=== PATIENT | male | born 2000 | race Caucasian/White ===

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

== ENCOUNTER 2021-05-09 03:02 | Inpatient (IN) ==
[2021-05-09 03:36] LABS: Appearance Urine Clear (Clear); Bacteria Urine Automated Negative (Negative); Bilirubin Urine Negative (Negative); Blood Urine Negative (Negative); Color Urine Yellow; Glucose Urine UA Negative (Negative); Ketones Urine Negative (Negative); Leukocyte Esterase Urine Negative (Negative); Nitrite Urine Negative (Negative); Protein Urine 1+ (Negative); RBC Urine Automated 0-4 /hpf (0-4); Urobilinogen Urine Negative (Negative)
[2021-05-09 03:56] LABS: Amphetamines+Metham, Urine Neg (Neg); Barbiturates, Urine Neg (Neg); Benzodiazepine, Urine Neg (Neg); Cocaine, Urine Neg (Neg); MDMA (Ecstacy), Urine Neg (Neg); Methadone, Urine Neg (Neg); Opiate, Urine Neg (Neg); Phencyclidine, Urine Neg (Neg)
[2021-05-09 04:05] LABS: Basophils # (auto) 0.04 K/uL (0-0.2); Basophils % (auto) 0.4 %; Eosinophils # (auto) 0.11 K/uL (0-0.5); Eosinophils % (auto) 1.2 %; Hematocrit (blood only) 47.2 % (42-52); Hemoglobin 16.3 g/dL (14.0-18.0); Immature Granulocytes # (auto) 0.04 K/uL (0.00-0.02); Immature Granulocytes % (auto) 0.4 %; Lymphocytes # (auto) 1.91 K/uL (1.2-3.4); Lymphocytes % (auto) 20.4 %; Mean Corpuscular Hemoglobin 29.6 pg (25-34); Mean Corpuscular Hgb Conc 34.5 g/dL (32-36); Mean Corpuscular Volume 85.7 fL (80-100); Mean Platelet Volume 10.5 fL (7.4-10.4); Monocytes # (auto) 0.77 K/uL (0.11-0.59); Monocytes % (auto) 8.2 %; Neutrophils # (auto) 6.47 K/uL (1.4-6.5); Neutrophils % (auto) 69.4 %; Platelet Count 285 K/uL (130-400); RDW Standard Deviation 40.6 fL (36.4-46.3); Red Blood Count 5.51 M/uL (4.7-6.1); White Blood Count 9.34 K/uL (4.8-10.8)
[2021-05-09 04:26] LABS: Alanine Aminotransferase 62 (12-78); Albumin Level 4.7 gm/dl (3.4-5.0); Aspartate Aminotransferase 27 U/L (15-37); BUN Creatinine Ratio 9.5 (10-20); Blood Urea Nitrogen 7 mg/dl (7-18); Calcium 9.5 mg/dl (8.5-10.1); Carbon Dioxide 22 mmol/L (21-32); Chloride 109 mmol/L (98-107); Creatinine Clr Calc Pharmacy 193.4 ml/min; Est GFR (African American) > 150.0 ml/min; Est GFR (Non-African American) 129.7 ml/min; Glucose 97 mg/dl (70-99); Potassium 3.9 mmol/L (3.5-5.1); Sodium 141 mmol/L (136-145)
[2021-05-09 04:37] LABS: Albumin Globulin Ratio 1.3 (0.9-2); Alkaline Phosphatase 94 U/L (45-117); Bilirubin,Total 0.3 mg/dl (0.2-1); Globulin 3.5 gm/dl (2.5-4.0); Total Protein 8.2 gm/dl (6.4-8.2)
[2021-05-09 04:44] LABS: Acetaminophen < 2 ug/ml (10-30)
[2021-05-09 04:45] LABS: Salicylate < 1.7 mg/dl (2.8-20)
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
[2021-05-09] MEDS ORDERED: BISMUTH SUBSALICYLATE LIQD 236 ML PO PRN (08:41)
[2021-05-09] MEDS ORDERED: ACETAMINOPHEN 325 MG TAB PO PRN (08:41)
[2021-05-09] MEDS ORDERED: ALUMINUM/MAGNESIUM SUSP 30 ML UDC PO PRN (08:41)
[2021-05-09] MEDS ORDERED: SODIUM CHLORIDE 0.65% NA SOLN 45 ML (OCEAN) PRN (08:41)
[2021-05-09] MEDS ORDERED: MAGNESIUM HYDROXIDE SUSP 30 ML UDC PO PRN (08:41)
[2021-05-09] MEDS ORDERED: hydrOXYzine HCl 25 MG TAB PO PRN (08:41)
[2021-05-09] MEDS ORDERED: Flu Vaccine (Flucelvax) 0.5mL SYR **Egg-Free IM ONE (11:00)
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
--- NOTE | 2021-05-09 14:44 | Emergency Department Note ---
ED Visit Note The patient was signed out to me awaiting disposition. He was accepted at [facility] . : Alcohol intoxication Qualifiers: Complication of substance-induced condition: uncomplicated Qualified Code(s): F10.920 - Alcohol use, unspecified with intoxication, uncomplicated
[2021-05-09] MEDS ORDERED: traZODone HCL 50 MG TAB PO SCH (21:00)
[2021-05-09] MEDS ORDERED: ESCITALOPRAM OXALATE 10 MG TAB PO SCH (21:00)
[2021-05-09] MEDS: traZODone HCL 100 MG TAB PO SCH (21:08)
[2021-05-10] MEDS: MONTELUKAST SODIUM 10 MG TABLET PO SCH (08:57)
[2021-05-10] MEDS: ESCITALOPRAM OXALATE 10 MG TAB PO SCH (08:57)
[2021-05-10] MEDS: buPROPion XL 300 MG TABCR PO SCH (08:57)
[2021-05-10] MEDS ORDERED: buPROPion XL 150 MG TABCR PO SCH (09:00)
--- NOTE | 2021-05-10 10:35 | Electrocardiogram Report ---
Test Reason : Blood Pressure : / mmHG Vent. Rate : 061 BPM Atrial Rate : 061 BPM P-R Int : 138 ms QRS Dur : 098 ms QT Int : 404 ms P-R-T Axes : 051 000 025 degrees QTc Int : 406 ms Normal sinus rhythm Normal ECG No previous ECGs available Confirmed by Frank Hale ([id number]) on 05/10/2021 10:35:30 AM Referred By: REFERRED SELF Confirmed By:Frank Hale
--- NOTE | 2021-05-10 14:40 | Psychiatric Progress Note ---
Date of Service May 10, 2021 Impression / Recommendations Impression The patient is a 21 year old with a history of depression, anxiety and self-harm via cutting who was admitted for worsening depression, SI with plans and significant self-harming in the context of alcohol intoxication. Diagnostically consistent with MDD and MOHSEN. Reviewed substance use and did motivational interviewing regarding alcohol use and disinhibiting effect it had and role it played it leading to significant self-harm. Also reviewed that derealization/depersonalization often occurs with marijuana use and would be a reason to reduce and ideally abstain from marijuana which he is willing to consider. The patient is deemed unstable and requires psychiatric hospitalization for diagnostic clarification, safety and stabilization, medication management and development of further coping skills. 05/10/21: Tolerating medication changes without side effects, remains depressed and somewhat isolative to his room. No urges for self-harm. EKG reviewed and normal sinus rhythm and normal QTc. (1) MOHSEN (generalized anxiety disorder): (2) MDD (major depressive disorder), recurrent episode, moderate: (3) Intentional self-harm: 05/10/21: continue with current medications. encouraged behavioral activation and continued group participation for development of more coping skills. 05/09/21: The patient was admitted to the [facility] ([facility] inpatient mental health unit) on q15 min checks (behavioral with suicide precautions) for safety. The patient will participate in group, recreational, and milieu therapies and will be offered additional individual and family sessions as clinically appropriate. -Get EKG given family history of father with heart attack at age 39 to rule out arrhythmia and assess QTc before increasing Wellbutrin dose -Declined NRT at this time but can have patch or gum if desired in future -Switch lexapro 10 mg from qhs to qAM -Increase trazodone from 50mg qhs to 100mg qhs -Increased Wellbutrin XL from 150mg qd to 300mg qd starting tomorrow (pending reassuring EKG) Inventory Assets Strengths: motivated to continue with therapy, good supports Needs: medication adjustments, increased daily structure with job or school Risk Factors Assessment Male: Yes : Yes Do You Have Access To A Gun?: No Health Problems: No Mental Health Diagnoses: Yes Substance Use Disorders: No Previous Attempt: No Family History of Suicide: No Previous Psychiatric Hospitalization: No Hopelessness: Yes Smoker: Yes Protective Factors Assessment Employed: No Stable Relationships: Yes Supportive Family: Yes Good Rapport with Provider: Yes Interval History Identifying Information LATANYA YEH is a 21-year-old man who currently lives in [place] with his father and step-mother, has a history of depression, anxiety and self-harm via cutting and no prior psychiatric hospitalizations, and was admitted on 05/09/21 07:55 on a 201 voluntary commitment for worsening depression, self-harm via cutting and SI with plans. Chief Complaint "I'm alright". Review of Systems Sleep Information Total Hours of Sleep: 9 Sleep Comments: pt given trazodone per rn. pt on q-15 minute checks. pt appeared to sleep 2 hrs during evening shift. Meal Information Percent Meal Consumed - Breakfast: 100 Percent Meal Consumed - Lunch: 100 Percent Meal Consumed - Dinner: 85 Nutrition Comment: Pt stated that he was not hungry Subjective Subjective Patient was seen & assessed and interval progress reviewed with treatment team nursing. Found the higher dose of trazodone helped a bit with falling asleep and staying asleep. No medication side effects. Attending groups. Continues to have depressed mood. Didn't notice any benefit from higher dose of Wellbutrin but also no increase in anxiety. Physical Exam Psychiatric Orientation: alert and oriented x 3 Apperance: appropriately dressed and appropriately groomed Eye Contact: good eye contact Motor Behavior: steady gait and station and no abnormal motor movements Speech: normal rate/rhythm/volume of speech Affect: + depressed affect Mood: + depressed mood and + anxious mood Thought Process: goal directed thought process Thought Content: reality based without delusions Suicidal Thoughts: denies suicidal thoughts Homicidal Thoughts: denies homicidal thoughts Hallucinations: no auditory hallucinations and no visual hallucinations Cognition: recent memory grossly intact, remote memory grossly intact, attention grossly intact and language grossly intact Estimated Intelligence: consistent with education level Insight: + fair insight Judgement: + fair judgement Vital Signs (Past 24 Hours) Last Vital Signs Temp 36.4 C L 05/10/21 06:43 Pulse 66 05/10/21 06:43 Resp 16 05/10/21 06:43 BP 114/86 05/10/21 06:43 Pulse Ox 97 05/09/21 09:10 Results & Data ([facility]) Current Inpatient Medications Current Inpatient Medications: Current Inpatient Medications Acetaminophen (Acetaminophen 325 Mg Tab) 650 mg PO Q4H PRN PRN Reason: Headache or Minor Fever Stop: 06/08/21 08:40 Al Hydrox/Mg Hydrox/Simethicone (Aluminum/Magnesium Susp 30 Ml Udc) 30 ml PO Q4H PRN PRN Reason: GI Upset Stop: 06/08/21 08:40 Bismuth Subsalicylate (Bismuth Subsalicylate Liqd 236 Ml) 15 ml PO PRN PRN PRN Reason: Loose Stool Stop: 06/08/21 08:40 Bupropion HCl (Bupropion Xl 300 Mg Tabcr) 300 mg PO DAILY GARTH Stop: 06/09/21 08:59 Last Admin: 05/10/21 08:57 Dose: 300 mg Documented by: Escitalopram Oxalate (Escitalopram Oxalate 10 Mg Tab) 10 mg PO QAM GARTH Stop: 06/09/21 08:59 Last Admin: 05/10/21 08:57 Dose: 10 mg Documented by: Hydroxyzine HCl (Hydroxyzine Hcl 25 Mg Tab) 50 mg PO HSZ PRN PRN Reason: Insomnia Stop: 06/08/21 08:40 Hydroxyzine HCl (Hydroxyzine Hcl 25 Mg Tab) 25 mg PO Q4H PRN PRN Reason: Anxiety Stop: 06/08/21 08:40 Magnesium Hydroxide (Magnesium Hydroxide Susp 30 Ml Udc) 30 ml PO DAILY PRN PRN Reason: Constipation Stop: 06/08/21 08:40 Montelukast Sodium (Montelukast Sodium 10 Mg Tablet) 10 mg PO DAILY GARTH Stop: 06/09/21 08:59 Last Admin: 05/10/21 08:57 Dose: 10 mg Documented by: Sodium Chloride (Sodium Chloride 0.65% Na Soln 45 Ml ([place])) 1 - 2 sprays NA PRN PRN PRN Reason: Nasal Dryness/Congestion Stop: 06/08/21 08:40 Trazodone HCl (Trazodone Hcl 100 Mg Tab) 100 mg PO PM GARTH Stop: 06/08/21 20:59 Last Admin: 05/09/21 21:08 Dose: 100 mg Documented by: Mental Health & Subst Abuse Tx Therapist Name of Therapist: Jayesh Baker Therapist's Therapy Appointment Comment: [address], [place], [place] Ground Support Equipment Fitter Name of Ground Support Equipment Fitter: None Post Discharge Appointments Primary Care Physician Name Of Family Doctor: [place] [facility] Primary Care Provider Appointment Comment: [id number], [place], [place] Contact Information Discharge Discharge Address: [facility] [address], [place] [address]
[2021-05-10] MEDS: traZODone HCL 100 MG TAB PO SCH (21:13)
[2021-05-11] MEDS: hydrOXYzine HCl 25 MG TAB PO PRN ×2 (01:34→02:42)
[2021-05-11] MEDS: ESCITALOPRAM OXALATE 10 MG TAB PO SCH (07:40)
[2021-05-11] MEDS: MONTELUKAST SODIUM 10 MG TABLET PO SCH (07:40)
[2021-05-11] MEDS: buPROPion XL 300 MG TABCR PO SCH (07:40)
--- NOTE | 2021-05-11 13:00 | Psychiatric Progress Note ---
Date of Service May 11, 2021 Impression / Recommendations Impression The patient is a 21 year old with a history of depression, anxiety and self-harm via cutting who was admitted for worsening depression, SI with plans and significant self-harming in the context of alcohol intoxication. Diagnostically consistent with MDD and MOHSEN. Reviewed substance use and did motivational interviewing regarding alcohol use and disinhibiting effect it had and role it played it leading to significant self-harm. Also reviewed that derealization/depersonalization often occurs with marijuana use and would be a reason to reduce and ideally abstain from marijuana which he is willing to consider. The patient is deemed unstable and requires psychiatric hospitalization for diagnostic clarification, safety and stabilization, medication management and development of further coping skills. 05/11/21: Tolerating medication changes without side effects, remains depressed though brightening a bit and no urges for self-harm nor SI today. Sleep remains significant challenge, discussed stopping trazodone and switching to mirtazapine which he consents to. Reviewed side effects including but not limited to SI, sedation, increased appetite. (1) MOHSEN (generalized anxiety disorder): (2) MDD (major depressive disorder), recurrent episode, moderate: (3) Intentional self-harm: 05/11/21: stop trazodone and start mirtazapine 15mg qhs for insomnia. Cont inue lexapro and Wellbutrin. Family meeting today and working on safety plan. 05/10/21: continue with current medications. encouraged behavioral activation and continued group participation for development of more coping skills. 05/09/21: The patient was admitted to the [facility] ([facility]) on q15 min checks (behavioral with suicide precautions) for safety. The patient will participate in group, recreational, and milieu therapies and will be offered additional individual and family sessions as clinically appropriate. -Get EKG given family history of father with heart attack at age 39 to rule out arrhythmia and assess QTc before increasing Wellbutrin dose -Declined NRT at this time but can have patch or gum if desired in future -Switch lexapro 10 mg from qhs to qAM -Increase trazodone from 50mg qhs to 100mg qhs -Increased Wellbutrin XL from 150mg qd to 300mg qd starting tomorrow (pending reassuring EKG) Inventory Assets Strengths: motivated to continue with therapy, good supports Needs: medication adjustments, increased daily structure with job or school Risk Factors Assessment Male: Yes : Yes Do You Have Access To A Gun?: No Health Problems: No Mental Health Diagnoses: Yes Substance Use Disorders: No Previous Attempt: No Family History of Suicide: No Previous Psychiatric Hospitalization: No Hopelessness: Yes Smoker: Yes Protective Factors Assessment Employed: No Stable Relationships: Yes Supportive Family: Yes Good Rapport with Provider: Yes Interval History Identifying Information LATANYA YEH is a 21-year-old man who currently lives in [place] with his father and step-mother, has a history of depression, anxiety and self-harm via cutting and no prior psychiatric hospitalizations, and was admitted on 05/09/21 07:55 on a 201 voluntary commitment for worsening depression, self-harm via cutting and SI with plans. Chief Complaint "I'm glad it's nadira today". Review of Systems Sleep Information Total Hours of Sleep: 4.5 Sleep Comments: pt given trazodone per rn. pt on q-15 minute checks. pt appeared to sleep 2 hrs during evening shift. Meal Information Percent Meal Consumed - Breakfast: 100 Percent Meal Consumed - Lunch: 100 Percent Meal Consumed - Dinner: 100 Nutrition Comment: Pt stated that he was not hungry Subjective Subjective Patient was seen & assessed and interval progress reviewed with treatment team nursing and social work. He reports his mood is "alright" today though he slept poorly with significant difficulty falling asleep even with trazodone and two doses of prn hydroxyzine. He is finding the Wellbutrin helpful for his mood and energy level without any side effects. Had some self-harming thoughts yesterday but none today and no SI so far today. Physical Exam Psychiatric Orientation: alert and oriented x 3 Apperance: appropriately dressed and appropriately groomed Eye Contact: good eye contact Motor Behavior: steady gait and station and no abnormal motor movements Speech: normal rate/rhythm/volume of speech Affect: + depressed affect Mood: + depressed mood and + anxious mood Thought Process: goal directed thought process Thought Content: reality based without delusions Suicidal Thoughts: denies suicidal thoughts Homicidal Thoughts: denies homicidal thoughts Hallucinations: no auditory hallucinations and no visual hallucinations Cognition: recent memory grossly intact, remote memory grossly intact, attention grossly intact and language grossly intact Estimated Intelligence: consistent with education level Insight: + fair insight Judgement: + fair judgement Vital Signs (Past 24 Hours) Last Vital Signs Temp 36.4 C L 05/11/21 06:00 Pulse 52 L 05/11/21 07:08 Resp 14 05/11/21 06:00 BP 116/78 05/11/21 07:08 Pulse Ox 97 05/09/21 09:10 Results & Data ([facility]) Current Inpatient Medications Current Inpatient Medications: Current Inpatient Medications Acetaminophen (Acetaminophen 325 Mg Tab) 650 mg PO Q4H PRN PRN Reason: Headache or Minor Fever Stop: 06/08/21 08:40 Al Hydrox/Mg Hydrox/Simethicone (Aluminum/Magnesium Susp 30 Ml Udc) 30 ml PO Q4H PRN PRN Reason: GI Upset Stop: 06/08/21 08:40 Bismuth Subsalicylate (Bismuth Subsalicylate Liqd 236 Ml) 15 ml PO PRN PRN PRN Reason: Loose Stool Stop: 06/08/21 08:40 Bupropion HCl (Bupropion Xl 300 Mg Tabcr) 300 mg PO DAILY GARTH Stop: 06/09/21 08:59 Last Admin: 05/11/21 07:40 Dose: 300 mg Documented by: Escitalopram Oxalate (Escitalopram Oxalate 10 Mg Tab) 10 mg PO QAM GARTH Stop: 06/09/21 08:59 Last Admin: 05/11/21 07:40 Dose: 10 mg Documented by: Hydroxyzine HCl (Hydroxyzine Hcl 25 Mg Tab) 50 mg PO HSZ PRN PRN Reason: Insomnia Stop: 06/08/21 08:40 Last Admin: 05/11/21 02:42 Dose: 50 mg Documented by: Hydroxyzine HCl (Hydroxyzine Hcl 25 Mg Tab) 25 mg PO Q4H PRN PRN Reason: Anxiety Stop: 06/08/21 08:40 Magnesium Hydroxide (Magnesium Hydroxide Susp 30 Ml Udc) 30 ml PO DAILY PRN PRN Reason: Constipation Stop: 06/08/21 08:40 Montelukast Sodium (Montelukast Sodium 10 Mg Tablet) 10 mg PO DAILY GARTH Stop: 06/09/21 08:59 Last Admin: 05/11/21 07:40 Dose: 10 mg Documented by: Sodium Chloride (Sodium Chloride 0.65% Na Soln 45 Ml ([place])) 1 - 2 sprays NA PRN PRN PRN Reason: Nasal Dryness/Congestion Stop: 06/08/21 08:40 Trazodone HCl (Trazodone Hcl 100 Mg Tab) 100 mg PO PM GARTH Stop: 06/08/21 20:59 Last Admin: 05/10/21 21:13 Dose: 100 mg Documented by: Mental Health & Subst Abuse Tx Therapist Name of Therapist: Jayesh Colbert- Gladys Baker Therapist's Therapy Appointment Comment: [address], [place], [place] Vocational Nurse Name of Vocational Nurse: None Post Discharge Appointments Primary Care Physician Name Of Family Doctor: [place] [facility] Primary Care Provider Appointment Comment: [phone], [place], [place] Contact Information Discharge Discharge Address: [address], [place] [address]
[2021-05-11] MEDS ORDERED: MIRTAZAPINE TAB 15 MG TAB PO SCH (22:00)
[2021-05-12 09:07] LABS: Marijuana Quant, GCMS Urine 275 ng/mL (<5)
[2021-05-12] MEDS: ESCITALOPRAM OXALATE 10 MG TAB PO SCH (09:21)
[2021-05-12] MEDS: buPROPion XL 300 MG TABCR PO SCH (09:21)
[2021-05-12] MEDS: MONTELUKAST SODIUM 10 MG TABLET PO SCH (09:21)
--- NOTE | 2021-05-12 12:22 | Psychiatric Progress Note ---
Date of Service May 12, 2021 Impression / Recommendations Impression The patient is a 21 year old with a history of depression, anxiety and self-harm via cutting who was admitted for worsening depression, SI with plans and significant self-harming in the context of alcohol intoxication. Diagnostically consistent with MDD and MOHSEN. Reviewed substance use and did motivational interviewing regarding alcohol use and disinhibiting effect it had and role it played it leading to significant self-harm. Also reviewed that derealization/depersonalization often occurs with marijuana use and would be a reason to reduce and ideally abstain from marijuana which he is willing to consider. The patient is deemed unstable and requires psychiatric hospitalization for diagnostic clarification, safety and stabilization, medication management and development of further coping skills. 05/12/21: Slept well with mirtazapine but having side effects this morning from it. Discussed reducing dose which he is agreeable to trying. Mood is improving. Completed safety plan and had family meeting. (1) MOHSEN (generalized anxiety disorder): (2) MDD (major depressive disorder), recurrent episode, moderate: (3) Intentional self-harm: 05/12/21: reduce mirtazapine to 7.5 mg qhs due to excessive grogginess this morning. Continue Lexapro and Wellbutrin XL. Safety plan completed. 05/11/21: stop trazodone and start mirtazapine 15mg qhs for insomnia. Continue lexapro and Wellbutrin. Family meeting today and working on safety plan. 05/10/21: continue with current medications. encouraged behavioral activation and continued group participation for development of more coping skills. 05/09/21: The patient was admitted to the [facility] ([facility]) on q15 min checks (behavioral with suicide precautions) for safety. The patient will participate in group, recreational, and milieu therapies and will be offered additional individual and family sessions as clinically appropriate. -Get EKG given family history of father with heart attack at age 39 to rule out arrhythmia and assess QTc before increasing Wellbutrin dose -Declined NRT at this time but can have patch or gum if desired in future -Switch lexapro 10 mg from qhs to qAM -Increase trazodone from 50mg qhs to 100mg qhs -Increased Wellbutrin XL from 150mg qd to 300mg qd starting tomorrow (pending reassuring EKG) Inventory Assets Strengths: motivated to continue with therapy, good supports Needs: medication adjustments, increased daily structure with job or school Risk Factors Assessment Male: Yes : Yes Do You Have Access To A Gun?: No Health Problems: No Mental Health Diagnoses: Yes Substance Use Disorders: No Previous Attempt: No Family History of Suicide: No Previous Psychiatric Hospitalization: No Hopelessness: Yes Smoker: Yes Protective Factors Assessment Employed: No Stable Relationships: Yes Supportive Family: Yes Good Rapport with Provider: Yes Interval History Identifying Information LATANYA YEH is a 21-year-old man who currently lives in [place] with his father and step-mother, has a history of depression, anxiety and self-harm via cutting and no prior psychiatric hospitalizations, and was admitted on 05/09/21 07:55 on a 201 voluntary commitment for worsening depression, self-harm via cutting and SI with plans. Chief Complaint "I'm ok". Review of Systems Sleep Information Total Hours of Sleep: 7.25 Sleep Comments: pt on q-15 minute checks. pt appeared to sleep 2 hrs during evening shift. Meal Information Percent Meal Consumed - Breakfast: 90 Percent Meal Consumed - Lunch: 100 Percent Meal Consumed - Dinner: 100 Nutrition Comment: Subjective Subjective Patient was seen & assessed and interval progress reviewed with treatment team nursing and social work. Janes slept well last night and reports the good news is that the mirtazapine worked really well but that the bad news is that he feels groggy this morning with a "tingling sensation" and brain fog. He had a good family meeting yesterday. Denies any other medication side effects. He's agreea ble to reducing the dose of the mirtazapine to see if this helps reduce the morning sedation and fogginess side effects. He was able to focus on and read his book yesterday which his family brought him for branden. Physical Exam Psychiatric Orientation: alert and oriented x 3 Apperance: appropriately dressed and appropriately groomed Eye Contact: good eye contact Motor Behavior: steady gait and station and no abnormal motor movements Speech: normal rate/rhythm/volume of speech Affect: euthymic affect Mood: + anxious mood Thought Process: goal directed thought process Thought Content: reality based without delusions Suicidal Thoughts: denies suicidal thoughts Homicidal Thoughts: denies homicidal thoughts Hallucinations: no auditory hallucinations and no visual hallucinations Cognition: recent memory grossly intact, remote memory grossly intact, attention grossly intact and language grossly intact Estimated Intelligence: consistent with education level Insight: + fair insight Judgement: + fair judgement Vital Signs (Past 24 Hours) Last Vital Signs Temp 36.4 C L 05/12/21 06:00 Pulse 67 05/12/21 06:41 Resp 14 05/12/21 06:00 BP 118/81 05/12/21 06:41 Pulse Ox 97 05/09/21 09:10 Results & Data ([facility]) Laboratory Results Laboratory Results - last 24 hr 05/09/21 03:27 U Marijuana THC Carboxy 275 H Drug Screen Comment SEE NOTE Current Inpatient Medications Current Inpatient Medications: Current Inpatient Medications Acetaminophen (Acetaminophen 325 Mg Tab) 650 mg PO Q4H PRN PRN Reason: Headache or Minor Fever Stop: 06/08/21 08:40 Al Hydrox/Mg Hydrox/Simethicone (Aluminum/Magnesium Susp 30 Ml Udc) 30 ml PO Q4H PRN PRN Reason: GI Upset Stop: 06/08/21 08:40 Bismuth Subsalicylate (Bismuth Subsalicylate Liqd 236 Ml) 15 ml PO PRN PRN PRN Reason: Loose Stool Stop: 06/08/21 08:40 Bupropion HCl (Bupropion Xl 300 Mg Tabcr) 300 mg PO DAILY GARTH Stop: 06/09/21 08:59 Last Admin: 05/12/21 09:21 Dose: 300 mg Documented by: Escitalopram Oxalate (Escitalopram Oxalate 10 Mg Tab) 10 mg PO QAM GARTH Stop: 06/09/21 08:59 Last Admin: 05/12/21 09:21 Dose: 10 mg Documented by: Hydroxyzine HCl (Hydroxyzine Hcl 25 Mg Tab) 50 mg PO HSZ PRN PRN Reason: Insomnia Stop: 06/08/21 08:40 Last Admin: 05/11/21 02:42 Dose: 50 mg Documented by: Hydroxyzine HCl (Hydroxyzine Hcl 25 Mg Tab) 25 mg PO Q4H PRN PRN Reason: Anxiety Stop: 06/08/21 08:40 Magnesium Hydroxide (Magnesium Hydroxide Susp 30 Ml Udc) 30 ml PO DAILY PRN PRN Reason: Constipation Stop: 06/08/21 08:40 Mirtazapine (Mirtazapine Tab 15 Mg Tab) 7.5 mg PO HS GARTH Stop: 06/11/21 21:59 Montelukast Sodium (Montelukast Sodium 10 Mg Tablet) 10 mg PO DAILY GARTH Stop: 06/09/21 08:59 Last Admin: 05/12/21 09:21 Dose: 10 mg Documented by: Sodium Chloride (Sodium Chloride 0.65% Na Soln 45 Ml ([place])) 1 - 2 sprays NA PRN PRN PRN Reason: Nasal Dryness/Congestion Stop: 06/08/21 08:40 Mental Health & Subst Abuse Tx Psychiatrist Name of Psychiatrist: Iram Guevara Psychiatrist's Date of Appointment with Psychiatrist: 05/28/21 Time of Appointment with Psychiatrist: 9:45 AM Psychiatric Appointment Comment: [address], [place] [address] Therapist Name of Therapist: Jayesh Baker Therapist's Date of Therapist Appointment: 05/13/21 Time of Therapist Appointment: 4:00pm (telehealth) Therapy Appointment Comment: [address], [place], [place] Commercial Truck Driver Name of Commercial Truck Driver: None Post Discharge Appointments Primary Care Physician Name Of Family Doctor: [place] [facility] Date of Appointment with PCP: 05/14/21 Time of Appointment with PCP: 10:30 AM Provider Appointment Comment: [address], [place], [place] Contact Information Discharge Discharge Address: [facility] [address] , [place], [place] [address]
[2021-05-12] MEDS ORDERED: MIRTAZAPINE TAB 15 MG TAB PO SCH (22:00)
[2021-05-13] MEDS: MONTELUKAST SODIUM 10 MG TABLET PO SCH (07:35)
[2021-05-13] MEDS: buPROPion XL 300 MG TABCR PO SCH (07:36)
[2021-05-13] MEDS: ESCITALOPRAM OXALATE 10 MG TAB PO SCH (07:36)
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
== END 2021-05-13 10:28 | disposition home or self-care (01) | DRG 885 ==
LOC: ED 03:02 → 3S 07:55